=== PATIENT | female | born 1975 | race Caucasian/White ===

== ENCOUNTER → 2016-12-01 | Outpatient (CLI) | payer OTHER ==
[~2016-12-01] MED LIST: ADVIL 200MG TA200 MG PO; BIOTIN1000 MCG PO; FERROUS SULFATE65 MG PO; FIBRO-TABS1 TAB PO; FLEXERIL 1010 MG/TAB PO; FLEXERIL PO; KETOROLAC10 MG PO; RELPAX40 MG PO; ZITHROMAX Z PA250 MG PO
[2016-12-01 08:14] LABS: ADJUSTED CALCIUM 9.3 mg/dL (8.4-10.2); ALBUMIN 3.8 gm/dL (3.5-5.0); BILIRUBIN,TOTAL 0.7 mg/dL (0.0-1.0); CALCIUM 9.1 mg/dL (8.4-10.2); CREATININE, serum 0.77 mg/dL (0.52-1.25); POTASSIUM 3.8 mmol/L (3.4-5.0); TOTAL PROTEIN 6.9 gm/dL (6.4-8.2)
[2016-12-01 10:06] LABS: THYROID STIMULATING HORMONE 1.31 uIU/mL (0.465-4.680)
== END ==
LOC: COL.LAB 06:36
PROVIDERS: Family Medicine
DX: Z00.00 Encounter for general adult medical examination without abnormal findings (principal); R63.5 Abnormal weight gain; E78.4 Other hyperlipidemia; E04.2 Nontoxic multinodular goiter; Z12.31 Encounter for screening mammogram for malignant neoplasm of breast; Z72.0 Tobacco use

== ENCOUNTER → 2017-08-02 | Outpatient (REF) ==
[2017-08-02 18:58] LABS: THYROID STIMULATING HORMONE 1.49 uIU/mL (0.465-4.680)
== END ==
LOC: ZLAB.WCH 18:10
PROVIDERS: Nurse Practitioner Family
DX: Z01.89 Encounter for other specified special examinations (principal)

== ENCOUNTER → 2018-01-03 | Outpatient (REF) | LOC: ZLAB.WCH 14:26 | DX: Z01.89 Encounter for other specified special examinations (principal) ==

== ENCOUNTER 2018-07-08 12:57 | Emergency (ER) | payer OTHER ==
[~2018-07-08] VITALS: Ht 170.2 cm; Wt 102.3 kg
[2018-07-08 15:45] VITALS: BP 138/66; PULSE 88; TEMP 99.5
[2018-07-08] MEDS ORDERED: IMITREX50 MG PO (15:46)
== END 2018-07-08 15:46 | disposition home or self-care (01) ==
LOC: COL.ER 12:57
DX: G43.909 Migraine, unspecified, not intractable, without status migrainosus (principal); F17.210 Nicotine dependence, cigarettes, uncomplicated; Z98.51 Tubal ligation status; Z98.890 Other specified postprocedural states
CPT/HCPCS: J1200; J1885; J2550; J2765; J7030

== ENCOUNTER 2019-09-24 02:05 | Emergency (ER) | payer OTHER ==
[~2019-09-24] VITALS: Ht 170.2 cm; Wt 101.8 kg
[~2019-09-24 02:05] MED LIST changes: +IMITREX50 MG PO
[2019-09-24] MEDS ORDERED: COMPAZINE 110 MG/TAB PO (03:48)
[2019-09-24 03:50] VITALS: BP 106/72; PULSE 66; TEMP 97.8
== END 2019-09-24 03:55 | disposition home or self-care (01) ==
LOC: COL.ER 02:05
DX: G43.909 Migraine, unspecified, not intractable, without status migrainosus (principal); F17.210 Nicotine dependence, cigarettes, uncomplicated; Z98.890 Other specified postprocedural states
CPT/HCPCS: J0780; J1200; J1885; J7030

== ENCOUNTER 2021-02-24 06:02 | Day surgery (SDC) | payer OTHER ==
[2021-02-24] VITALS (11 sets, daily range): BP systolic 115–138; BP diastolic 70–97; PULSE 61–84; TEMP 98.3
[~2021-02-24] VITALS: Ht 170.3 cm; Wt 111.0 kg
[~2021-02-24 06:02] MED LIST changes: +COMPAZINE 110 MG/TAB PO
[2021-02-24] MEDS ORDERED: ASPIRIN E.C. 8181 MG PO (06:11)
[2021-02-24] MEDS ORDERED: CHANTIX 1MG1 MG PO (06:11)
[2021-02-24] MEDS ORDERED: VYVANSE40 MG PO (06:11)
[2021-02-24] MEDS ORDERED: KLONOPIN 0.5MG0.5 MG PO (06:22)
[2021-02-24 07:06] LABS: HEMATOCRIT 36.5 % (37.0-47.0); HEMOGLOBIN 11.6 g/dl (12.5-16.0); MEAN CELL VOLUME 78 fl (80.0-100.0); MEAN CORPUSCULAR HEMOGLOBIN 25 pg (27.0-31.0); MEAN CORPUSCULAR HGB CONC 32 g/dl (33.0-37.0); MEAN PLATELET VOLUME 11.9 fl (7.4-10.4); PLATELET COUNT 181 K/mm3 (130-400); RED BLOOD COUNT 4.69 M/mm3 (4.10-5.30)
[2021-02-24 07:16] LABS: CALCIUM 9.3 mg/dL (8.4-10.2); CREATININE, serum 0.64 (0.52-1.25); POTASSIUM 3.7 mmol/L (3.4-5.0)
[2021-02-24 07:18] LABS: INR 1.1 (0.8-3.0); PROTHROMBIN TIME 12.3 SECONDS (9.7-12.8)
[2021-02-24 07:32] LABS: PARTIAL THROMBOPLASTIN TIME 33.2 SECONDS (26.0-37.0)
--- NOTE | 2021-02-24 12:00 | NUR ---
Air has been removed from TR band in 2ml increments with no bleeding or complications. Rt radial puncture site dressed with 2x2 and bandaid. DC instructions reviewed with pt and , both express understanding. INT DC'd with catheter intact. Pt is steady on feet in room. She is assisted out to 's car by wheelchair.
== END 2021-02-24 12:00 | disposition home or self-care (01) ==
LOC: COL.CAR 06:02
PROVIDERS: Internal Medicine Interventional Cardiology
DX: R07.89 Other chest pain (principal); R94.39 Abnormal result of other cardiovascular function study; R06.02 Shortness of breath; M54.2 Cervicalgia; I10 Essential (primary) hypertension; Z79.82 Long term (current) use of aspirin; Z79.899 Other long term (current) drug therapy; Z20.822 Contact with and (suspected) exposure to COVID-19
CPT/HCPCS: C1769; J1644; J2250; J3010

== ENCOUNTER 2022-03-09 00:54 | Emergency (ER) | payer OTHER ==
[~2022-03-09] VITALS: Ht 170.2 cm; Wt 104.5 kg
[~2022-03-09 00:54] MED LIST changes: -MASON NATURAL2000 IU PO; -MOTRIN 800800 MG/TAB PO; -PERCOCET 325 MG1 TA2 PO; -VYVANSE30 MG PO; -VYVANSE50 MG PO; -ZOFRAN ODT4 MG PO
[2022-03-09 00:59] VITALS: TEMP 98.1
[2022-03-09 01:33] LABS: BASO % 0.5 % (0.0-2.0); EOS # 0.3 K/mm3 (0.0-0.7); EOS % 4.5 % (0.0-4.0); GRAN # 3.4 K/mm3 (1.4-6.5); GRAN % 55.9 % (42.2-75.2); HEMATOCRIT 40.1 % (37.0-47.0); HEMOGLOBIN 12.9 g/dl (12.5-16.0); LYMPH # 2.1 K/mm3 (1.2-3.4); LYMPH % 33.4 % (20.0-51.0); MEAN CELL VOLUME 79 fl (80.0-100.0); MEAN CORPUSCULAR HEMOGLOBIN 25 pg (27-31); MEAN CORPUSCULAR HGB CONC 32 g/dl (33.0-37.0); MEAN PLATELET VOLUME 11.5 fl (7.4-10.4); MONO # 0.3 K/mm3 (0.1-0.6); MONO % 5.5 % (1.7-9.3); PLATELET COUNT 170 K/mm3 (130-400); RED BLOOD COUNT 5.09 M/mm3 (4.10-5.30); REDCELL DISTRIBUTION WIDTH-CV 14.9 % (11.5-14.5)
[2022-03-09 01:48] LABS: ALBUMIN 3.7 gm/dL (3.5-5.0); BILIRUBIN,TOTAL 0.3 mg/dL (0.2-1.2); CALCIUM 9.6 mg/dL (8.4-10.2); CREATININE, serum 0.8 mg/dL (0.57-1.11); TOTAL PROTEIN 6.9 gm/dL (6.2-8.1)
[2022-03-09 02:07] LABS: COLLECTION METHOD CLEAN CATCH
[2022-03-09 02:12] LABS: MUCOUS Present (NOT PRESENT); PH 5 (5-8); SQUAMOUS EPITHELIAL 0-2 /hpf (0-10); URINE APPEARANCE Clear (CLEAR/HAZY); URINE BACTERIA None Seen /hpf (NONE SEEN); URINE BLOOD Negative (NEGATIVE); URINE COLOR Yellow (YELLOW); URINE GLUCOSE Negative (NEGATIVE); URINE KETONE Negative (NEGATIVE); URINE NITRATE Negative (NEGATIVE); URINE PROTEIN(semi-quant) Negative (NEGATIVE); URINE RBC None Seen /hpf (0-2); URINE UROBILINOGEN Negative (NEGATIVE)
[2022-03-09] MEDS ORDERED: ZOFRAN ODT4 MG PO (04:35)
[2022-03-09] MEDS ORDERED: PERCOCET 325 MG1 TA2 PO (04:35)
[2022-03-09 04:55] VITALS: BP 153/102; PULSE 84
[2022-03-09] MEDS ORDERED: VYVANSE30 MG PO (14:59)
[2022-03-09] MEDS ORDERED: VYVANSE50 MG PO (14:59)
[2022-03-09] MEDS ORDERED: MASON NATURAL2000 IU PO (15:01)
[2022-03-10] MEDS ORDERED: MOTRIN 800800 MG/TAB PO (08:39)
== END 2022-03-09 04:59 | disposition home or self-care (01) ==
LOC: COL.ER 00:54
PROVIDERS: Emergency Medicine
DX: N83.202 Unspecified ovarian cyst, left side (principal); I71.02 Dissection of abdominal aorta; E66.9 Obesity, unspecified; F17.210 Nicotine dependence, cigarettes, uncomplicated; Z68.36 Body mass index [BMI] 36.0-36.9, adult; Z88.5 Allergy status to narcotic agent
CPT/HCPCS: J1885; J2405; J3010; J7120; Q9967

== ENCOUNTER → 2022-03-09 | Day surgery (SDC) | payer OTHER ==
[~2022-03-09] VITALS: Ht 170.2 cm; Wt 106.5 kg
[2022-03-09] VITALS (8 sets, daily range): BP systolic 104–151; BP diastolic 60–82; PULSE 74–88; TEMP 97.4–98
[~2022-03-09] MED LIST changes: +ASPIRIN E.C. 8181 MG PO; +CHANTIX 1MG1 MG PO; +KLONOPIN 0.5MG0.5 MG PO; +MASON NATURAL2000 IU PO; +MOTRIN 800800 MG/TAB PO; +PERCOCET 325 MG1 TA2 PO; +VYVANSE30 MG PO; +VYVANSE40 MG PO; +VYVANSE50 MG PO; +ZOFRAN ODT4 MG PO
--- NOTE | 2022-03-09 20:20 | NUR ---
Pt to room from PACU. Alert and oriented by drowsy. Friend at bedside. Assessment completed. Abdominal lap sites X3 covered with bandaides, clean dry and intact. Post op vitals started. Pt oriented to plan of care. Call light within reach.
[2022-03-10 03:12] VITALS: BP 135/72; PULSE 84; TEMP 97.6
[2022-03-10 07:40] VITALS: BP 138/73; PULSE 68; TEMP 97.7
== END ==
LOC: SDCO 14:10
DX: N20.1 Calculus of ureter (principal)
CPT/HCPCS: J0690; J1100; J1885; J2405; J2704; J3010; J7120

== ENCOUNTER → 2022-03-12 | Outpatient (CLI) | payer OTHER ==
[~2022-03-12] MED LIST changes: +MASON NATURAL2000 IU PO; +MOTRIN 800800 MG/TAB PO; +PERCOCET 325 MG1 TA2 PO; +VYVANSE30 MG PO; +VYVANSE50 MG PO; +ZOFRAN ODT4 MG PO
[2022-03-12 11:20] LABS: C-REACTIVE PROTEIN 0.72 mg/dL (0.00-0.50)
[2022-03-12 11:35] LABS: THYROID STIMULATING HORMONE 1.702 uIU/mL (0.350-4.940)
[2022-03-13 12:54] LABS: ANA SCREEN with REFLEX Negative (Negative)
[2022-03-15 17:46] LABS: C-ANCA 22 U/mL (0-99)
== END ==
LOC: COL.LAB 10:07
PROVIDERS: Internal Medicine
DX: I77.6 Arteritis, unspecified (principal)

== ENCOUNTER 2022-03-25 23:09 | Emergency (ER) | payer OTHER ==
[~2022-03-25] VITALS: Ht 170.2 cm; Wt 103.2 kg
[2022-03-25 23:24] VITALS: TEMP 97.9
[2022-03-26 01:00] LABS: BASO % 0.4 % (0.0-2.0); EOS # 0.3 K/mm3 (0.0-0.7); EOS % 3.3 % (0.0-4.0); GRAN # 4.5 K/mm3 (1.4-6.5); GRAN % 59.5 % (42.2-75.2); HEMATOCRIT 39.6 % (37.0-47.0); HEMOGLOBIN 13.1 g/dl (12.5-16.0); LYMPH # 2.4 K/mm3 (1.2-3.4); LYMPH % 31.3 % (20.0-51.0); MEAN CELL VOLUME 79 fl (80.0-100.0); MEAN CORPUSCULAR HEMOGLOBIN 26 pg (27-31); MEAN CORPUSCULAR HGB CONC 33 g/dl (33.0-37.0); MONO # 0.4 K/mm3 (0.1-0.6); MONO % 5.2 % (1.7-9.3); PLATELET COUNT 218 K/mm3 (130-400); RED BLOOD COUNT 5.04 M/mm3 (4.10-5.30); REDCELL DISTRIBUTION WIDTH-CV 15.5 % (11.5-14.5)
[2022-03-26 01:37] LABS: ALBUMIN 3.8 gm/dL (3.5-5.0); BILIRUBIN,TOTAL 0.3 mg/dL (0.2-1.2); CALCIUM 9.6 mg/dL (8.4-10.2); CREATININE, serum 0.74 mg/dL (0.57-1.11); POTASSIUM 4.1 mmol/L (3.5-4.5); TOTAL PROTEIN 7.4 gm/dL (6.2-8.1)
[2022-03-26] MEDS ORDERED: PERCOCET 325 MG1 TA2 PO (02:46)
[2022-03-26] MEDS ORDERED: ZOFRAN ODT4 MG PO (02:47)
[2022-03-26 03:04] VITALS: BP 139/87; PULSE 77
== END 2022-03-26 03:00 | disposition home or self-care (01) ==
LOC: COL.ER 23:09
PROVIDERS: Personal Emergency Response Attendant
DX: R51.9 Headache, unspecified (principal); F17.200 Nicotine dependence, unspecified, uncomplicated; Z86.69 Personal history of other diseases of the nervous system and sense organs; Z88.5 Allergy status to narcotic agent
CPT/HCPCS: J0780; J1200; J2270; J7030

== ENCOUNTER → 2024-01-20 | Outpatient (CLI) | payer OTHER | LOC: COL.CARD 07:37 | DX: R06.02 Shortness of breath (principal) ==

== ENCOUNTER 2024-04-16 11:38 | Emergency (ER) | payer OTHER ==
[~2024-04-16] VITALS: Ht 170.2 cm; Wt 106.8 kg
[2024-04-16 11:44] VITALS: TEMP 98.3
[2024-04-16] MEDS ORDERED: NS 100 ML IV SCH (13:02)
[2024-04-16] MEDS ORDERED: Iohexol 350 - 100 ML VIAL IV ONE (13:02)
[2024-04-16 13:17] LABS: BASO % 0.4 % (0.0-2.0); EOS # 0.3 K/mm3 (0.0-0.7); EOS % 3.8 % (0.0-4.0); GRAN # 5.1 K/mm3 (1.4-6.5); GRAN % 60.4 % (42.2-75.2); HEMATOCRIT 41.5 % (37.0-47.0); HEMOGLOBIN 13.9 g/dl (12.5-16.0); LYMPH # 2.5 K/mm3 (1.2-3.4); LYMPH % 29.6 % (20.0-51.0); MEAN CELL VOLUME 83 fl (80.0-100.0); MEAN CORPUSCULAR HEMOGLOBIN 28 pg (27-31); MEAN CORPUSCULAR HGB CONC 34 g/dl (33.0-37.0); MEAN PLATELET VOLUME 12.2 fl (7.4-10.4); MONO # 0.5 K/mm3 (0.1-0.6); MONO % 5.6 % (1.7-9.3); PLATELET COUNT 191 K/mm3 (130-400); RED BLOOD COUNT 5.03 M/mm3 (4.10-5.30); REDCELL DISTRIBUTION WIDTH-CV 13.7 % (11.5-14.5)
[2024-04-16 13:54] LABS: ALANINE AMINOTRANSFERASE 19 U/L (0-55); ALBUMIN 3.8 g/dL (3.5-5.0); ALKALINE PHOSPHATASE 89 U/L (40-150); ANION GAP 14 mmol/L (7-16); AST,SGOT 17 U/L (5-34); BILIRUBIN,TOTAL 0.6 mg/dL (0.2-1.2); BLOOD UREA NITROGEN 13 mg/dL (7-19); CALCIUM 10.5 mg/dL (8.4-10.2); CHLORIDE 104 mEq/L (98-107); CREATININE, serum 0.81 mg/dL (0.57-1.11); GLUCOSE 186 mg/dL (70-99); POTASSIUM 4.5 mEq/L (3.5-4.5); SODIUM 137 mEq/L (136-145); TOTAL PROTEIN 7.7 g/dl (6.2-8.1)
[2024-04-16 14:10] LABS: TROPONIN-I < 0.010 ng/mL (0.00-0.033)
[2024-04-16 15:25] VITALS: BP 115/76; PULSE 82
== END 2024-04-16 15:26 | disposition home or self-care (01) ==
LOC: COL.ER 11:38
PROVIDERS: Personal Emergency Response Attendant
DX: R06.00 Dyspnea, unspecified (principal); Z09 Encounter for follow-up examination after completed treatment for conditions other than malignant neoplasm; Z86.16 Personal history of COVID-19
CPT/HCPCS: Q9967